=== PATIENT | female | born 1965 | race Caucasian/White ===

== ENCOUNTER → 2025-03-01 | Outpatient (REF) | payer BC ==
[2025-03-01 15:35] LABS: BASO # 0.01 K/mm3 (0.02-0.10); EOS # 0.05 K/mm3 (0.04-0.40); EOS % 0.9 % (1.0-5.0); HEMATOCRIT 35.2 % (37.0-47.0); LYMPH# 2.54 K/mm3 (1.50-4.00); MEAN CELL VOLUME 92 fl (78-100); MEAN CORPUSCULAR HEMOGLOBIN 31 pg (27-31); MEAN CORPUSCULAR HGB CONC 34 g/dL (33-37); MEAN PLATELET VOLUME 8.8 fl (7.4-10.4); MONO # 0.36 K/mm3 (0.20-0.80); NEU # 2.42 K/mm3 (1.40-6.50); PLATELET COUNT 338 K/mm3 (130-400); RED BLOOD COUNT 3.83 M/mm3 (4.10-5.30); RED CELL DISTRIBUTION WIDTH 12.6 % (11.5-14.5); WHITE BLOOD COUNT 5.4 K/mm3 (4.8-10.8)
[2025-03-01 17:48] LABS: ALBUMIN 4.5 g/dL (3.5-5.0); CALCIUM 8.9 mg/dL (8.3-10.5)
[2025-03-01 17:50] LABS: TOTAL PROTEIN 7.3 g/dL (6.4-8.3)
[2025-03-01 17:52] LABS: TOTAL BILIRUBIN 0.4 mg/dL (0.2-1.2)
[2025-03-01 17:57] LABS: MAGNESIUM 1.85 mg/dL (1.60-2.60)
== END ==
LOC: LAB 14:56 → EDSTATUS 15:01
PROVIDERS: Internal Medicine
DX: Z00.00 Encounter for general adult medical examination without abnormal findings (principal); T50.905A Adverse effect of unspecified drugs, medicaments and biological substances, initial encounter; K90.9 Intestinal malabsorption, unspecified; E78.2 Mixed hyperlipidemia; R73.9 Hyperglycemia, unspecified